=== PATIENT | female | born 1985 | race Caucasian/White ===

== ENCOUNTER 2017-01-18 16:42 | Emergency (ER) | payer SELFPAY ==
[~2017-01-18] VITALS: Ht 160 cm; Wt 70.0 kg
[2017-01-18 16:42] VITALS: Ht 160 cm; Wt 70.0 kg
[~2017-01-18 16:42] MED LIST: CA CHLORIDE 10% 10 ML SYRINGE ONE; DEXTROSE 50% 50 ML SYRINGE ONE; EPINEPHrine 0.1 MG/ML SYG ONE; NA BICARBONATE 8.4% 50 ML SYG ONE
[2017-01-18 16:44] VITALS: BP 133/113; PULSE 189; RESP 25
--- NOTE | 2017-01-18 17:05 | ERA ---
ER Documentation Chief Complaint Date/Time DATE: 01/18/17 TIME: 16:59 Chief Complaint HPI 31-year-old female, unknown name, unknown history, transient to is found in cardiac arrest in the field. Greater than 10 minute downtime. Now greater than 35 minutes of downtime upon arrival. Patient has been in asystole and PEA arrest. The patient has had multiple rounds of epi. She was not intubated in the field. Patient was given dextrose because of hypoglycemia. Patient remains in cardiac arrest upon arrival. Remainder of HPI limited given critical nature. ROS Critical patient PMhx/Soc Unknown FmHx Unknown Physical Exam Physical Exam General: Unresponsive Head: Normocephalic, atraumatic Eyes: Fixed and dilated pupils ENT: Moist mucous membranes Neck: Supple, no lymphadenopathy Respiratory: No spontaneous respiratory activity Cardiovascular: No spontaneous cardiac activity Abdominal: Soft, non-protuberant, no pulsatile mass : Deferred MSK: No spontaneous motor activity Neurologic: No spontaneous neurologic activity Skin: No evidence of trauma, lividity to bilateral buttock and upper thigh Procedures/MDM PROCEDURES: Intubation Note: Indication: Airway protection Consent: This was an emergent situation, implied consent was observed RSI Medications: None required Tube size: 7.5 Secured at: 23 at the lip Procedure: Endotracheal intubation was performed. The patient was preoxygenated with supplemental oxygen, the room was set up with emergent airway equipment including [id number], suction, adjunct airways. Direct visualization of the cords was performed with direct laryngoscopy using a 4.0 Mac blade, insertion of the endotracheal tube through the cords was visualized by the loop machine operator. Bilateral breath sounds were auscultated, color change was observed. The tube was then secured in a postintubation chest x-ray was ordered. The patient tolerated the procedure well there were no complications. Central Line Note: Consent: Critical patient Indication: Critically ill patient requiring specialized vascular access for fluid or pressor management Location: Right femoral vein Procedure: Sterile procedure was observed throughout insertion of the central line. The insertion site was prepped with sterile solution. Ultrasound-guided identification of the vein was performed. Insertion of a needle into the vein was obtained with return of dark, nonpulsatile blood. The wire was then threaded through the needle without complication. The wire was then identified within the vein using ultrasound. A small skin incision was made, the needle was removed intact, dilation of the vein was performed and insertion of a triple lumen catheter was completed. The catheter was then sutured to the skin. All 3 ports marck back and flushed without difficulty. A sterile dressing was applied. The patient tolerated the procedure well there were no complications. Emergency Bedside Ultrasound: The patient was verbally consented prior to procedure and understands the risks , benefits, and alternatives. The patient is agreeable to procedure and has given verbal consent. Indication: Central line Probe Type: Linear Findings: Dynamic ultrasound utilizing compressive technique with both linear and horizontal views, additional images showing wire within the venous system were obtained. The patient tolerated the procedure well and there were no complications. Emergency Bedside Ultrasound: Indication: Cardiac arrest Probe Type: Curvilinear Findings: No spontaneous cardiac activity, no pericardial effusion The patient tolerated the procedure well and there were no complications. MEDICAL DECISION MAKING: The patient is a gentleman presents in cardiac arrest. Unknown etiology. ER COURSE: Upon arrival the patient has no pulses, no spontaneous neurologic activity, she has fixed and dilated pupils with prolonged downtime. The patient continues to be asystolic. The patient was intubated, central line was placed. ACLS was directed by myself. The patient received multiple medications including epinephrine, calcium, bicarb, dextrose, Narcan. The patient had transient return of spontaneous circulation with a significant tachycardia in the 200s that was narrow complex this was transient for approximately 1 minute. The patient then rapidly lost pulses again. We continued ACLS per protocol. Please see nursing documentation for full course. Medications. The patient has now been down for greater than 40 minutes with no sustainable rhythm at this point. Despite full efforts in the emergency department persistent resuscitation efforts are futile. At this time the patient has no spontaneous neurologic, cardiogenic, respiratory activity. Patient's pupils are fixed and dilated. Cardiac ultrasound shows no evidence of cardiac activity. Time of at 1658 DISPOSITION PLAN: Departure Diagnosis: Primary Impression: Cardiac arrest Additional Impression: Asystole Condition: Critical () ARMANDO MOLINA MD January 18, 2017 17:05
== END 2017-01-18 16:58 | disposition expired ==
LOC: E/R 16:42
DX: I46.9 Cardiac arrest, cause unspecified (principal)
CPT/HCPCS: 31500; 36556; 92950; J0171; 76937